=== PATIENT | female | born 1985 | race Caucasian/White ===

== ENCOUNTER 2021-03-03 20:06 | Emergency (ER) | payer OTHER ==
[~2021-03-03 20:06] MED LIST: NORCO 7.5-3251 EACH PO; TAMIFLU75 MG PO
== END 2021-03-03 22:25 | disposition home or self-care (01) ==
LOC: ER1 20:06
DX: R09.89 Other specified symptoms and signs involving the circulatory and respiratory systems (principal); F17.210 Nicotine dependence, cigarettes, uncomplicated; Z88.1 Allergy status to other antibiotic agents
CPT/HCPCS: 71046; 99283